=== PATIENT | male | born 1975 | race Caucasian/White ===

== ENCOUNTER 2021-01-06 13:30 | Observation (INO) ==
[2021-01-06] MEDS ORDERED: Isovue-370 500 ML BOTTLE IVP ONE (14:22)
[2021-01-06 15:03] LABS: Activated Partial Thrombo Time 34.7 Seconds (26.0-36.0); Basophils # 0.1 K/mcL (0.0-0.2); Basophils % 0.8 %; Eosinophils # 0.2 K/mcL (0.0-0.6); Eosinophils % 2.7 %; Hematocrit 43.3 % (37.5-50.1); Hemoglobin 14.3 g/dL (12.9-16.9); INR 0.9; Immature Granulocytes % 0.8 % (0-4); Lymphocytes # 2.3 K/mcL (0.6-4.6); Lymphocytes % 29.2 %; Mean Corpuscular Hemoglobin 27.9 pg (28.0-33.3); Mean Corpuscular Volume 84.6 fL (83.0-100.0); Mean Platelet Volume 11.3 fL (9.4-12.4); Monocytes # 0.6 K/mcL (0.0-1.3); Monocytes % 8.1 %; Neutrophils # 4.5 K/mcL (1.6-8.9); Platelet Count 197 K/mcL (140-400); Prothrombin Time 10.4 Seconds (9.4-12.1); Red Blood Count 5.12 M/mcL (4.19-5.50); Red Cell Distribution Width 14.3 % (11.5-14.5); Segmented Neutrophils % 58.4 %; White Blood Count 7.8 K/mcL (4.3-11.1)
[2021-01-06 15:14] LABS: Alanine Aminotransferase 45 Units/L (7-52); Albumin 4.1 g/dL (3.5-5.7); Alkaline Phosphatase 72 Units/L (34-104); Aspartate Amino Transferase 30 Units/L (13-39); BUN/Creatinine Ratio 11 (6-26); Bilirubin,Direct 0.1 mg/dL (0.0-0.2); Bilirubin,Indirect 0.3 mg/dL (0.0-1.0); Bilirubin,Total 0.4 mg/dL (0.3-1.0); Blood Urea Nitrogen 9 mg/dL (6-20); Calcium 9.7 mg/dL (8.6-10.3); Carbon Dioxide 25 mEq/L (23-29); Chloride 103 mEq/L (98-107); Glucose 109 mg/dL (70-105); Osmolality,Calculated 287 (280-300); Potassium 3.9 mEq/L (3.5-5.1); Sodium 139 mEq/L (136-145); Troponin I < 0.03 ng/mL (< 0.04); eGFR For African Americans > 60 (> 60); eGFR For Non-African Americans > 60 (> 60)
[2021-01-06 15:26] LABS: Albumin/Globulin Ratio 1.2 (1.1-2.2); Globulin 3.3 g/dL (2.4-3.5); Total Protein 7.4 g/dL (6.4-8.9)
[2021-01-06] MEDS ORDERED: Aspirin 325 MG TABLET PO ONE (16:27)
[2021-01-06] MEDS ORDERED: Perflutren Lipid Microsphere 1.3 ML in 0.9 % Sodium Chloride 8.7 ML IVP PRN (16:28)
[2021-01-06] MEDS ORDERED: Naloxone 0.4 MG/ML INJ IVP PRN (17:15)
[2021-01-06] MEDS: *HR* Heparin 5,000 UNIT/ML VIAL SQ SCH (19:39)
[2021-01-07] MEDS: *HR* Heparin 5,000 UNIT/ML VIAL SQ SCH (05:10)
[2021-01-07 05:57] LABS: Estimated Average Glucose 120 mg/dl; Hemoglobin A1C 5.8 %
[2021-01-07 06:14] LABS: Alanine Aminotransferase 39 Units/L (7-52); Albumin/Globulin Ratio 1.3 (1.1-2.2); Alkaline Phosphatase 60 Units/L (34-104); Aspartate Amino Transferase 30 Units/L (13-39); BUN/Creatinine Ratio 10 (6-26); Bilirubin,Total 0.4 mg/dL (0.3-1.0); Blood Urea Nitrogen 9 mg/dL (6-20); Carbon Dioxide 27 mEq/L (23-29); Chloride 104 mEq/L (98-107); Chol/HDL Ratio 8.2 (0-4.9); Cholesterol 254 mg/dL (< 200); Glucose 80 mg/dL (70-105); HDL Cholesterol 31 mg/dL (40-59); Osmolality,Calculated 290 (280-300); Sodium 141 mEq/L (136-145); Triglycerides 431 mg/dL (< 150); eGFR For African Americans > 60 (> 60); eGFR For Non-African Americans > 60 (> 60)
[2021-01-07 06:15] LABS: Prothrombin Time 10.8 Seconds (9.4-12.1)
[2021-01-07 06:28] LABS: LDL Cholesterol,Direct 161 mg/dL (75-193); Thyroid Stimulating Hormone 2.835 mcIU/mL (0.340-5.600)
[2021-01-07] MEDS ORDERED: predniSONE 20 MG TABLET PO SCH (09:00)
[2021-01-07] MEDS ORDERED: Aspirin Enteric Coated 81 MG Tablet PO SCH (09:00)
[2021-01-07 10:48] VITALS: BP 130/86; PULSE 77; TEMP 98; O2SAT 97
== END 2021-01-07 14:22 | disposition home or self-care (01) ==
LOC: EMEROOARM 13:30 → 3BNU 13:30 → SUATTDRO 16:49 → 3BNU 17:26
PROVIDERS: ADMIT Internal Medicine; ATTEND Internal Medicine